=== PATIENT | female | born 1955 | race Caucasian/White ===

== ENCOUNTER 2017-05-24 06:41 | Emergency (ER) | payer OTHER ==
--- NOTE | ~2017-05-24 | CT17 ---
[facility] A Service of [facility] & [facility] RADIOLOGY TEXT RESULTS PATIENT: SMILEY SHIPMAN LOCATION: [facility] : 59 UNIT #: [id number] AGE: [address]: Negro Fowler MD SEX: F ORDER DR: [id number] [facility] [address] [place], [place] [address] [id number] E MR#: [id number] Acc #: [id number] NAME: SMILEY SHIPMAN : 1955 SEX: F STUDY DATE/TIME: 05/24/2017 10:57 UNIT: [facility] ROOM: STUDY DESCRIPTION: CT Angio Head Attending Physician: Negro Fowler M.D. Ordering Physician: Negro Fowler M.D. Primary Care Physician: Adelina Engel M.D. MEDICAL IMAGING REPORT This report is preliminary unless electronic signature is present EXAM CT angiogram of the head HISTORY The patient is a 61-year-old female who has a known history of aneurysm and presents with dizziness today. Aneurysm seen on an MR angiogram 10/08/2014. No trauma history indicated. TECHNIQUE CT angiography of the intracranial vasculature performed during the intravenous administration of 100 mL of Isovue-370 with imaging acquired in the axial plane followed by multiple reconstructed and reformatted images for the purpose of CT angiography of the intracranial vessels. This CT exam was performed with one or more of the following radiation dose reduction techniques: automatic exposure control, adjustment of mA and/or kV according to patient size, and iterative reconstruction. COMPARISON Head CT from earlier today and to the MR angiogram from 10/08/2014. COMMENT Redemonstrated is a 1.0-2.0 mm aneurysm arising from the right supraclinoid internal carotid artery directed cephalad and not appreciably changed from the previous MR angiogram. There is no intracranial vascular cutoff. The distal left vertebral artery is dominant but both vertebral arteries supply the basilar. There is no focal central stenosis. There is probably a quite tiny anterior communicator present. The dural venous sinuses are patent. There is a tiny focus of contrast outpouching from the left side supraclinoid ICA which may be the origin of a tiny left posterior communicator or a tiny 1.0 mm aneurysm. It is also not changed from the previous MR angiogram. [facility] A Service of [facility] RADIOLOGY TEXT RESULTS PATIENT: SMILEY SHIPMAN LOCATION: [facility] : 59 UNIT #: [id number] AGE: [address]: Negro Fowler MD SEX: F ORDER DR: IMPRESSION Stable appearance to the 2.0 mm aneurysm from the supraclinoid ICA on the right and stable appearance to the 1.0 mm aneurysm or infundibulum from the supraclinoid ICA on the left. No intracranial vascular cutoff or focal central stenosis. STAT * RESULT Dictated by... Opal Archuleta M.D. THIS IS AN ELECTRONICALLY VERIFIED REPORT Opal Archuleta M.D. at 05/24/2017 1:03 PM Aubrey TD: 05/24/2017 12:34 JOB #: [id number] MEDICAL IMAGING REPORT Page 1 of 1 COPY
--- NOTE | ~2017-05-24 | CT71 ---
[facility] A Service of [facility] & [facility] RADIOLOGY TEXT RESULTS PATIENT: SMILEY SHIPMAN LOCATION: [facility] : 59 UNIT #: [id number] AGE: [address]: Negro Fowler MD SEX: F ORDER DR: [id number] [facility] [address] [place], [place] [address] [id number] E MR#: [id number] Acc #: [id number] NAME: SMILEY SHIPMAN : 1955 SEX: F STUDY DATE/TIME: 05/24/2017 10:46 UNIT: [facility] ROOM: STUDY DESCRIPTION: CT Head Wo Contrast Attending Physician: Negro Fowler M.D. Ordering Physician: Negro Fowler M.D. Primary Care Physician: Adelina Engel M.D. MEDICAL IMAGING REPORT This report is preliminary unless electronic signature is present EXAM Head CT without. HISTORY 61-year-old female who presents with dizziness today. History of aneurysm in brain seen on an MR-angiogram 10/08/2014. COMMENT Routine noncontrast head CT is reviewed. This CT exam was performed with one or more of the following radiation dose reduction techniques: automatic exposure control, adjustment of mA and/or kV according to patient size, and iterative reconstruction. COMPARISON Comparison is made to a head CT from 10/10/2014. There is a CT angiogram scheduled for today. There is a previous intracranial MR angiogram 10/08/2014. FINDINGS There is a large left jugular bulb which is high-riding and there is suspicion of some bony dehiscence between the jugular bulb on the left and the posterior aspect of the left middle ear. The mastoid air cells are clear. There is a large mucous retention cyst or polyp in the right maxillary sinus, and there is mucosal disease in the ethmoid air cells, but there is no sinus air-fluid level. There is no evidence for acute intracranial hemorrhage or extraaxial fluid collection. The ventricles are normal in size and configuration. The camilo-white junction is relatively well-maintained. There is no acute cortical infarct. There is no intracranial mass effect. IMPRESSION 1. Paranasal sinus disease without sinus air-fluid level. Otherwise, [facility]. [facility] A Service of [facility] & [facility] RADIOLOGY TEXT RESULTS PATIENT: SMILEY SHIPMAN LOCATION: [facility] #: [id number] : 59 UNIT #: [id number] AGE: [address]: Negro Fowler MD SEX: F ORDER DR: essentially negative noncontrast head CT. Dictated by... Opal Archuleta M.D. THIS IS AN ELECTRONICALLY VERIFIED REPORT Opal Archuleta M.D. at 05/25/2017 7:27 AM ANN MARIE/josé miguel TD: 05/24/2017 19:21 JOB #: [id number] MEDICAL IMAGING REPORT Page 1 of 1 COPY
--- NOTE | ~2017-05-24 | MR18 ---
[facility] A Service of [facility] & [facility] RADIOLOGY TEXT RESULTS PATIENT: SMILEY SHIPMAN LOCATION: [facility] : 59 UNIT #: [id number] AGE: [address]: Negro Fowler MD SEX: F ORDER DR: [id number] [facility] [address] [place], [place] [address] [id number] E MR#: [id number] Acc #: [id number] NAME: SMILEY SHIPMAN : 1955 SEX: F STUDY DATE/TIME: 05/24/2017 9:31 UNIT: [facility] ROOM: STUDY DESCRIPTION: MR Brain Wo Contrast Attending Physician: Negro Fowler M.D. Ordering Physician: Negro Fowler M.D. Primary Care Physician: Adelina Engel M.D. MRI CENTER REPORT This report is preliminary unless electronic signature is present. EXAM MRI of the brain, without contrast, dated 05/24/2017. COMPARISON MRI of brain without contrast, dated 10/08/2014. HISTORY Head spinning with symptoms starting at 0200 hours this morning. It lasted until 0600 hours today. FINDINGS Multisequence multiplanar imaging of the brain was obtained without contrast. No acute stroke, space-occupying intracranial mass, mass effect, midline shift or hydrocephalus. Basal ganglia, brainstem and cerebellar hemispheres are within normal limits. Vascular flow voids of the major cerebral arteries and dural venous sinuses are not routine not occluded in these thicker slices. Mild bilateral mastoid mucosal thickening is seen. Moderate right maxillary sinus mucosal thickening is noted suggestive of polyp or mucous retention cyst. Nasal septum is deviated to the left. Imaged orbits with the ocular structures demonstrate mild change in the shape of the bilateral globes, particularly along the posteromedial aspect suspicious for benign entity like staphyloma. Stable since prior study from 3 years ago. A partially empty sella is seen. Pineal region, plus cervical spine and internal auditory canals with the inner ear structures are unremarkable. IMPRESSION 1. No acute stroke or significant intracranial abnormality. 2. Partially empty sella. 3. 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 4. Nasal septal deviation to the left with moderate nodular mucosal STS. [facility] A Service of [facility] RADIOLOGY TEXT RESULTS PATIENT: SMILEY SHIPMAN LOCATION: [facility] : 59 UNIT #: [id number] AGE: [address]: Negro Fowler MD SEX: F ORDER DR: thickening in the right maxillary antrum suggestive of polyp or mucous retention cyst. 5. Mild bilateral mastoid mucosal thickening and minimal paranasal sinus disease. Dictated by... Helga Jorge M.D. THIS IS AN ELECTRONICALLY VERIFIED REPORT Helga Jorge M.D. at 05/25/2017 2:15 PM CPR/jt TD: 05/24/2017 16:39 JOB #: [id number] MRI CENTER REPORT Page 1 of 1 COPY
--- NOTE | ~2017-05-24 | EKG ---
PATIENT: SMILEY SHIPMAN UNIT #: [id number] Ventricular Rate: 71 BPM Atrial Rate: 71 BPM P-R Interval: 162 ms QRS Duration: 68 ms Q-T Interval: 410 ms QTC Calculation(Bezet): 445 ms P [place]: 50 degrees Calculated R [place]: 12 degrees Calculated T [place]: 47 degrees Diagnosis Line: Normal sinus rhythm Diagnosis Line: Nonspecific ST and T wave abnormality Diagnosis Line: Abnormal ECG Diagnosis Line: When compared with ECG of 02-DEC-2016 15:07, Diagnosis Line: Inverted T waves have replaced nonspecific T wave Diagnosis Line: abnormality in Anterior leads Diagnosis Line: Confirmed by MICHELLE PASTOR MD ([id number]) on Diagnosis Line: 05/25/2017 8:28:50 AM INTERPRETING MD: DAWIT YE
[~2017-05-24 06:41] MED LIST: AMARYL PO; ASPIRIN81 MG; BENADRYL25 M3 PO; CATAFLAM50 MG PO; FAMOTIDINE PO; FAMOTIDINE20 M1 PO; FLEXERIL10 MG PO; IBUPROFEN800 MG PO; LEVOTHYROXINE50 MCG PO; LISINOPRIL PO; LISINOPRIL20 MG PO; LISINOPRIL5 MG PO; METFORMIN HCL500 M1 PO; METFORMIN PO; NORCO1 TAB 10/3 PO; PAIN RELIEF325 MG PO; PEPCID40 MG PO; PHENERGAN PO; PREDNISONE PO; PROTONIX PO; SYNTHROID PO; SYNTHROID175 MCG PO; SYNTHROID25 MCG PO; TIROSINT100 MCG PO; TRAVEL-EASE25 M1 PO; TRAZODONE PO; UNITHROID25 MCG PO; VOLTAREN50 MG PO; ZANTAC PO
[2017-05-24 07:57] LABS: URINE SOURCE CLEAN CATCH
[2017-05-24 08:08] LABS: POC - CKMB 1.5 ng/mL (0.0-7.9); POC - TROPONIN <0.05 ng/mL (<=0.05)
[2017-05-24 08:08] LABS: URINE APPEARANCE CLEAR; URINE BILIRUBIN NEG (NEG); URINE BLOOD NEG (NEG); URINE COLOR YELLOW; URINE GLUCOSE NEG (NEG); URINE KETONE NEG (NEG); URINE LEUKOCYTE ESTERASE TRACE (NEG); URINE NITRATE NEG (NEG); URINE PROTEIN NEG (NEG); URINE SPECIFIC GRAVITY 1.025 (1.003-1.035); URINE UROBILINOGEN 0.2 MG/DL (NEG)
[2017-05-24 08:10] LABS: CULTURE INDICATED? YES; U HYALINE CASTS AUWI 0-2 /[LPF]; URBCS1 AUWI 0-2 /[HPF] (0-2); URINE BACTERIA AUWI 1+ (NEGATIVE); URINE SQUAMOUS EPITHELIAL CELL OCC /[HPF]
[2017-05-24 08:10] LABS: BASOPHIL% 0.6 % (0-2.5); EOSINOPHIL# 0.2 X10e3 (0-0.7); EOSINOPHIL% 2.6 % (0.0-7.0); HEMATOCRIT 45.6 % (35.0-45.0); HEMOGLOBIN 15.5 gm/dL (12.0-16.0); LYMPHOCYTE% 31.3 % (17.0-45.0); MEAN CELL VOLUME 89.4 FL (83-96); MEAN CORPUSCULAR HEMOGLOBIN 30.4 PG (28-34); MEAN PLATELET VOLUME 9.3 FL (6.5-11.5); MONOCYTE# 0.5 X10e3 (0-1.0); MONOCYTE% 8.4 % (3.0-12.0); NEUTROPHIL# 3.6 X10e3 (1.5-7.1); NEUTROPHIL% 57.1 % (40-75); PLATELET COUNT 201 X10e3 (140-420); RED CELL DISTRIBUTION WIDTH 12.9 % (11.0-15.5); WHITE BLOOD COUNT 6.2 X10e3 (4.0-10.5)
[2017-05-24 08:13] LABS: DIFF IND NO
[2017-05-24 08:18] LABS: AMPHETAMINE NEG (NEG); BARBITURATES NEG (NEG); BENZODIAZEPINES NEG (NEG); COCAINE NEG (NEG); MARIJUANA NEG (NEG); OPIATES NEG (NEG); TRICYCLIC ANTIDEPRESSANTS NEG (NEG); U METHADONE NEG (NEG)
[2017-05-24 08:47] LABS: ALBUMIN SERUM 4.1 g/dL (3.5-5.0); BILIRUBIN, DIRECT 0.1 mg/dL (0.0-0.2); BILIRUBIN,INDIRECT 0.7 mg/dL (0.0-0.9); BILIRUBIN,TOTAL 0.8 mg/dL (0.2-2.0); CALCIUM SERUM 9.1 mg/dL (8.4-10.2); CREATININE SERUM 0.5 mg/dL (0.6-1.4); POTASSIUM 4.1 mmol/L (3.5-5.1); PROTEIN TOTAL SERUM 7.2 g/dL (6.0-8.3)
[2017-05-24 11:31] LABS: POC - CKMB <1.0 ng/mL (0.0-7.9); POC - TROPONIN <0.05 ng/mL (<=0.05)
== END 2017-05-24 13:00 | disposition home or self-care (01) ==
LOC: CED 06:41
PROVIDERS: Emergency Medicine
DX: J32.9 Chronic sinusitis, unspecified (principal); E03.9 Hypothyroidism, unspecified; I10 Essential (primary) hypertension; E11.9 Type 2 diabetes mellitus without complications; Z79.899 Other long term (current) drug therapy; Z88.5 Allergy status to narcotic agent; Z88.8 Allergy status to other drugs, medicaments and biological substances
CPT/HCPCS: 70450; 70496; 70551; 80048; 80076; 80307; 81003; 82553; 84484; 85025; 87086; 93005; 99283; Q9967